=== PATIENT | male | born 1955 | race Caucasian/White ===

== ENCOUNTER 2019-08-29 21:41 | Emergency (ER) | payer BC ==
[~2019-08-29] VITALS: Ht 193 cm; Wt 163.3 kg
[~2019-08-29 21:41] MED LIST: BENICAR20 MG PO; BYETTA10 MCG/0.0 SQ; CENTRUM COMPLE1 EACH PO; FARXIGA PO; FUROSEMIDE40 MG PO; IRON PO; KLOR-CON M2020 MEQ PO; MEDOXOMIL PO; METFORMIN HCL500 MG PO; MONTELUKAST SOD10 MG PO; OMEPRAZOLE40 MG PO; RANITIDINE HCL300 M1 PO; SIMVASTATIN20 MG PO; ZOCOR20 MG PO
[2019-08-29] MEDS ORDERED: KETOROLAC TROMETHAMINE 60 MG/2 ML VIAL IM ONE (22:15)
[2019-08-29] MEDS ORDERED: HYDROCODONE/APAP 10MG-325MG TAB PO ONE ×2 (22:15→23:30)
[2019-08-29] MEDS ORDERED: ORPHENADRINE CITRATE 30 MG/ML VIAL IM ONE ×2 (22:15→23:30)
[2019-08-29 22:17] VITALS: BP 124/65
--- NOTE | 2019-08-29 22:48 | Emergency Department Note ---
History of Present Illnes History of Present Illness Chief Complaint: Extremity Trauma/Pain History of Present Illness This is a 64 year old male T AAOX3 REPORTS RIGHT HIP PAIN X1 WEEK; PT SEEN AT DR. Venu [facility]GEN'S OFFICE YESTERDAY AND RX'D MEDROL DOSE PACK;. STATES CAME TO [facility] BECAUSE HE WENT TO SIT SOWN AND PAIN BECAME SUDDENLY WORSE. Historian: Patient Arrival Mode: Car Onset (how long ago): day(s) (7) Location: RIGHT HIP Quality: PAIN Radiation: Reports extremity (RIGHT LEG) Onset quality: sudden Duration (how long): day(s) (7) Timing of current episode: constant Progression: waxing and waning Chronicity: new Context: Denies recent illness, Denies recent surgery Relieving factors: immobilization Exacerbating factors: movement Associated symptoms: Reports denies other symptoms Treatments prior to arrival: other (MEDROL DOSE PACK) Past Medical/Family History Physician Review I have reviewed the patient's past medical and family history. Any updates have been documented here. Past Medical History Recent Fever: No Clinical Suspicion of Infectio: No New/Unexplained Change in Ment: No Past Medical History: Hypertension, Diabetes, GERD Past Surgical History: Cholecysctectomy, Knee Replacement Social History Smoking Cessation: Never Smoker Counseling Performed: No Alcohol Use: None Any Illegal Drug Use: No TB Exposure/Symptoms: No Physically hurt or threatened: No Family History Family history of heart diseas: Yes Other Last Tetanus: UTD Any Pre-Existing Lines (PICC,: No Is patient up to date on immun: Yes Last Flu: DENIES Last Pneumovax: DENIES Review of Systems Review of Systems Constitutional: Reports no symptoms EENTM: Reports no symptoms Cardiovascular: Reports no symptoms Respiratory: Reports no symptoms Gastrointestinal: Reports no symptoms Genitourinary: Reports no symptoms Musculoskeletal: Reports as per HPI Integumentary: Reports no symptoms Neurological: Reports no symptoms Psychological: Reports no symptoms Endocrine: Reports no symptoms Hematological/Lymphatic: Reports no symptoms Physical Exam Related Data Allergies: Coded Allergies: No Known Allergies (Unverified , 08/29/19) Triage Vital Signs Vital Signs Date Time Temp Pulse Resp B/P (MAP) Pulse Ox O2 Delivery O2 Flow Rate FiO2 08/29/19 22:09 99.0 90 17 121/67 99 Vital signs reviewed: Yes Physical Exam CONSTITUTIONAL Constitutional: Present well-developed, Present well-nourished HENT HENT: Present normocephalic, Present atraumatic, Present oropharynx clear/moist, Present nose normal HENT L/R: Present left ext ear normal, Present right ext ear normal EYES Eyes: Reports PERRL, Reports conjunctivae normal NECK Neck: Present ROM normal PULMONARY Pulmonary: Present effort normal, Present breath sounds normal CARDIOVASCULAR Cardiovascular: Present regular rhythm, Present heart sounds normal, Present capillary refill normal, Present normal rate GASTROINTESTINAL Abdominal: Present soft, Present nontender, Present bowel sounds normal GENITOURINARY Genitourinary: Present exam deferred SKIN Skin: Present warm, Present dry MUSCULOSKELETAL Musculoskeletal: Present tenderness (RIGHT LOWER BACK), Present other (PAIN RIGHT LOWER BACK, WORSE WITH MOVEMENT, POSITIVE STRAIGHT LEG RAISE RIGHT) NEUROLOGICAL Neurological: Present alert, Present oriented x 3, Present no gross motor or se nsory deficits PSYCHOLOGICAL Psychological: Present mood/affect normal, Present judgement normal Procedures 12 Lead ECG Interpretation ECG Interpretation : ECG: ECG 1 Cane Splicer: Interpreted by ED physician Date: Aug 29, 2019 Time: 21:54 Rhythm: sinus rhythm Rate: normal BPM: 95 Conduction: 1st degree ST segments normal: Yes T waves normal: Yes Q waves: V1, V2, V3 Clinical Impression: abnormal ECG Assessment & Plan Medical Decision Making MDM PT WITH PAIN RIGHT LOWER BACK/HIP THAT RADIATES DOWN RIGHT LEG, PULSE IN RIGHT LEG AND FOOT STRONG AND INTACT TORADOL 60 MG IM ORDERED PT DISCHARGED WITH TYLENOL #3 1 PO Q 6 HOURS PRN PAIN, FLEXERIL 10 MG 1 PO Q 8 HOURS PRN MUSCLE SPASM Assessment & Plan Final Impression: (1) Sciatica, right side Depart Disposition: HOME, SELF-CARE Last Vital Signs Date Time Temp Pulse Resp B/P (MAP) Pulse Ox O2 Delivery O2 Flow Rate FiO2 08/29/19 22:09 99.0 90 17 121/67 99 Home Meds Reported Medications Exenatide (BYETTA) 10 Mcg/0.04 Ml Pen.injctr, 10 MCG SQ BID 12/07/16 [Farxiga] No Conflict Check, 5 MG PO DAILY 12/07/16 [Iron] No Conflict Check, 5 GM PO DAILY 12/07/16 Potassium Chloride (KLOR-CON M20) 20 Meq Tabcr, 1 TAB PO DAILY 12/07/16 Olmesartan Medoxomil (BENICAR) 20 Mg Tablet, 20 MG PO DAILY, #30 TAB 12/07/16 Multivitamin/Iron/Folic Acid (CENTRUM COMPLETE MULTIVIT TAB) 1 Each Tablet, 1 TAB PO DAILY 12/07/16 Montelukast Sodium (MONTELUKAST SODIUM) 10 Mg Tablet, 10 MG PO DAILY, #30 TAB 12/07/16 Simvastatin (ZOCOR) 20 Mg Tablet, 10 MG PO DAILY, #30 TAB 12/07/16 Omeprazole (OMEPRAZOLE) 40 Mg Capsule.dr, 40 MG PO DAILY 12/07/16 Metformin Hcl (METFORMIN HCL) 500 Mg Tablet, 500 MG PO 5XD, #60 TAB 12/07/16 Furosemide (FUROSEMIDE) 40 Mg Tablet, 40 MG PO Daily, #30 TAB 12/07/16 Ranitidine Hcl (RANITIDINE HCL) 300 Mg Capsule, 1 CAP PO DAILY 12/07/16 Medications in the ED Ketorolac Tromethamine 60 mg ONCE ONCE IM Last administered on 08/29/19at 22:19; Admin Dose 60 MG; Start 08/29/19 at 22:15; Stop 08/29/19 at 22:38; Status DC Orphenadrine Citrate 60 mg ONCE ONCE IM ; Start 08/29/19 at 22:15; Stop 08/29/19 at 22:12; Status DC Acetaminophen/ Hydrocodone Bitart 1 ea ONCE ONCE PO ; Start 08/29/19 at 22:15; Stop 08/29/19 at 22:12; Status DC JALEEL BRYANT MD Aug 29, 2019 22:48
--- NOTE | 2019-08-29 23:28 | NUR ---
PATIENT ATTEMPTED TO GET OUT OF BED BUT ALMOST FELL, PATIENT ASSISTED BACK IN BED, DR BRYANT INFORMED, FURTHER MEDICAL INTERVENTIONS ARE BEING PUT IN THE MEDICAL RECORD BY DR BRYANT
== END 2019-08-30 01:54 | disposition home or self-care (01) ==
LOC: ER 21:41
DX: M25.551 Pain in right hip (principal); I10 Essential (primary) hypertension; E11.9 Type 2 diabetes mellitus without complications; K21.9 Gastro-esophageal reflux disease without esophagitis
CPT/HCPCS: 99283; J1885; J2360; 93005